=== PATIENT | female | born 2000 | race Caucasian/White ===

== ENCOUNTER 2025-06-30 12:08 | Emergency (ER) | payer OTHER, SELFPAY ==
[2025-06-30 12:10] VITALS: BP 159/98
[2025-06-30] MEDS: MOTRIN 400 MG PO (14:54)
[2025-06-30 14:56] VITALS: BMI 25.8
[2025-06-30 15:00] VITALS: BP 124/70
[2025-06-30 16:00] VITALS: BP 120/69
[2025-06-30 17:01] VITALS: BP 122/74
[2025-06-30 18:00] VITALS: BP 123/81
--- NOTE | 2025-06-30 18:41 | ED.GENMED ---
History of Present Illness
General
Chief Complaint: Musculo-Skeletal Complaint
Source: patient and family
Time Seen by Provider: 06/30/25 14:27
History of Present Illness
History of Present Illness:
Note:
CHIEF COMPLAINT(S)
Inability to move both legs due to episodic sharp pain.
HISTORY OF PRESENT ILLNESS
The patient is a 25-year-old female who presents with episodes of inability to move both lower extremities associated with sharp pain. These episodes began approximately one month ago. The initial episode involved sharp pain beginning in one leg,
followed by similar pain in the other leg with associated weakness, preventing mobility, including inability to walk to the bathroom. The episodes resolved after two days and did not recur until today. During today�s episode, the patient experienced
two separate episodes of sharp pain and weakness in both legs, first occurring around 10:00 AM, and again around 11:00 AM. The pain and weakness are described as coming and going completely, with the episodes today being described as sudden in
onset.
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
month old. 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
The patient denies recent trauma, heavy lifting, or other activities preceding the onset of the symptoms. No urinary or bowel incontinence, numbness, or abnormal sensations in the perineal area have been reported. No new back pain or changes in
pre-existing conditions related to the congenital abnormalities were noted.
EXTERNAL RECORDS REVIEWED
The patient previously visited her primary care physician, who ordered blood work and X-ray approximately two weeks ago at [facility]. However, these investigations were stated as not providing conclusive information about the current
neurological symptoms.
CHRONIC MEDICAL CONDITIONS SIGNIFICANTLY AFFECTING CARE
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
PHYSICAL EXAM
General: Alert, no acute distress.
Skin: No abnormalities reported.
Head: Normocephalic, atraumatic.
Neck: Supple, trachea midline.
Eye, Ear, Nose, Mouth and Throat: Oral mucosa moist. Pacification of the right cornea noted.
Cardiovascular: Heart regular without murmur. Normal bilateral pulses in the feet, well perfused, bilaterally warm.
Respiratory: Respirations are non-labored, no respiratory distress noted.
Gastrointestinal: Abdomen nondistended.
Back: Non-tender to midline palpation, no obvious deformities.
Musculoskeletal: The ability to lift legs against gravity bilaterally, normal deep tendon reflexes bilaterally.
Neurological: Alert and oriented to person, place, time, and situation, able to hold legs against gravity, showing no focal neurological deficit observed.
Psychiatric: Cooperative, appropriate mood and affect.
PROBLEM LIST
Acute Issues:
- Episodic sharp pain and weakness in both lower extremities.
- Congenital spinal opening evaluation.
Chronic Issues:
- Pectus excavatum.
- Corneal clouding and history of corneal transplant.
- Artery hyperplasia.
PLAN
- Consider obtaining advanced imaging such as MRI to assess potential nerve impingement and further investigate congenital spinal involvement.
- Review previous tests and x-rays for any overlooked abnormalities.
- The patient was given 400 mg of ibuprofen for pain relief with consent.
- Re-evaluation of the need for immediate imaging versus scheduled advanced imaging.
DIFFERENTIAL DIAGNOSIS
The Differential Diagnosis includes, in no particular order and is not limited to:
- Sciatic nerve impingement.
- Multiple sclerosis.
- Transient ischemic attack.
- Spinal cord compression.
- Peripheral neuropathy.
- Congenital spinal anomaly-related nerve involvement.
- Acute disseminated encephalomyelitis.
- Disk herniation.
- Arteriovenous malformation in the spine.
- Vascular ischemia affecting spinal or peripheral areas.
CARE-UPDATE
06/30/25 - 14:48
Discussion with the radiologist confirms the decision to proceed with a CT scan of the patients back for a more detailed evaluation of the anatomy. Initiation of ibuprofen for management of symptoms has been planned.
CARE-UPDATE
06/30/25 - 18:40
The patient reports feeling much better with no further symptoms, suggesting the symptoms may be briefly episodic. Transverse myelitis is less suspected. The patient successfully urinated independently, with no signs of incontinence. A CT was deemed
sufficient for current evaluation. I recommend an outpatient MRI for further assessment, and the patients mother agrees to an outpatient follow-up. The patient is considered safe for discharge.
Disposition:
SUMMARY OF ENCOUNTER
The patient, a 25-year-old female, presented with intermittent episodes of sharp pain and weakness in both lower extremities, preventing her from moving her legs. The episodes began around a month ago and have been episodic in nature. In the
emergency department, her neurological examination did not show any focal deficits, and normal deep tendon reflexes were noted. Given the concern for possible nerve involvement due to congenital abnormalities near the spine, advanced imaging was
considered. Transverse myelitis was considered but deemed less likely. The patients symptoms resolved completely during the visit.
DISPOSITION
Discharge. The patient is considered safe for outpatient management with follow-up.
ASSESSMENT
Episodic sharp pain and weakness in both lower extremities, potential nerve involvement due to congenital spinal anomaly.
PLAN
Recommend outpatient follow-up with primary care physician. Consider outpatient MRI for further assessment of congenital spinal abnormalities.
PATIENT EDUCATION AND COUNSELING
The patient was advised that while her current symptoms have resolved, follow-up with her primary care provider is essential to monitor and investigate the cause of the episodes.
FOLLOW-UP INSTRUCTIONS
Follow up with primary care physician. Outpatient MRI may be considered for further evaluation.
MEDICATION RECONCILIATION
Ibuprofen 400 mg was administered for pain relief.
MEDICAL DECISION MAKING
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 Differential diagnosis includes sciatic nerve impingement,
multiple sclerosis, transient ischemic attack, spinal cord compression, peripheral neuropathy, congenital spinal anomaly-related nerve involvement, acute disseminated encephalomyelitis, disk herniation, arteriovenous malformation in the spine, and
vascular ischemia affecting spinal or peripheral areas.
- Data:
Category 1
Non-emergency department records reviewed. Previous records including blood work and X-ray from [facility] were noted as inconclusive.
Category 2
No specific independent interpretation of imaging or labs during this visit.
Category 3
Discussion with radiologist led to a decision to obtain a CT scan for further evaluation. Patients mother was involved in the discussion regarding follow-up care.
- Risk: Consideration of Admission/Observation: Escalation of care including admission/observation was considered given the complexity and risk of the patients presenting complaint. However, ultimately I feel the patient is safe for outpatient
management with close follow-up. Reasoning: Workup was reassuring, didnt reveal any acute life/organ-threatening processes, patients symptoms well controlled upon reevaluation, reexamination was reassuring, vitals were stable, patient agreeable with
discharge, reliable for follow-up.
DIAGNOSIS
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
Past History
Past History
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
ED Past Surgical History: None
Social History
Tobacco: Non-smoker
Phy Exam
Physical Exam
Physical Exam:
.
Course
Orders/Labs/Results
Orders:
Orders
06/30/25 14:45
CT Lumbar Spine W/o Iv Contras Urgent
Comment:
Reason For Exam: b/l lower ext weakness, pain, h/o genetic d/o
06/30/25 14:46
Ibuprofen [Motrin] 400 mg PO NOW STA
Vital Signs
Initial and Last Documented VS:
Initial Vital Signs
Temp Pulse Resp BP Pulse Ox
98.2 F 86 15 159/98 100
06/30/25 12:10 06/30/25 12:10 06/30/25 12:10 06/30/25 12:10 06/30/25 12:10
Last Documented Vital Signs
Temp Pulse Resp BP Pulse Ox
98.2 F 86 15 123/81 98
06/30/25 12:10 06/30/25 12:10 06/30/25 12:10 06/30/25 18:00 06/30/25 18:43
*Pulse Oximetry
SaO2: 98
Oxygen Mode of Delivery: Room air
Patient hypoxic: no
*Critical Care Note
Total Time (30-74mins, 75-104mins- exclusive of procedures): Not Applicable
ED Attending Note
-
Portions of this chart may have been created with voice recognition software.� Occasional wrong word or��sound alike� substitutions may have occurred due to the inherent limitations of voice recognition software.
Discharge Plan
Departure
Patient Disposition: Home (Routine Discharge)
Date of Disposition: 06/30/25
Time of Disposition: 18:43
Patient with high blood pressure during this ER visit?: No
Discharge Problem:
Radiculopathy
Prescriptions:
No Action
ibuprofen 600 MG tablet
600 mg PO Q6 Qty: 20 0RF
atorvastatin 10 mg Tablet
10 mg PO HS
rizatriptan 10 mg Tablet
10 mg PO DAILY
azelastine 137 mcg (0.1 %) [place],Non-Aerosol
2 spray INTRANASAL BID
Referrals:
Stephanie Herr CRNP [Family Provider]
Activity Restrictions/Additional Instructions:
Leg pain, possible radiculopathy
If symptoms persist, an MRI of your low back may be necessary. Please see your doctor in the next 3 to 5 days for follow-up and reevaluation. Please rest and return immediately for worsening symptoms, fevers, bowel incontinence, bladder
incontinence, numbness or tingling in the genitourinary anatomy or perirectal region, fevers, or any other concerns.
Interventions
Interventions:
*Risk Screen - Suicide Last Done: 06/30/25 12:10
*General Assessment Last Done: 06/30/25 12:10
*Neglect/Abuse Screening Last Done: 06/30/25 12:10
*ED- Fall Risk Assessment Last Done: 06/30/25 15:00
*ED COVID-19 Vaccine History Last Done: 06/30/25 12:10
*ED Influenza Vaccine History Last Done: 06/30/25 12:10
*Nursing Disposition Last Done: 06/30/25 18:55
ED-Musculoskeletal Assessment Last Done: 06/30/25 15:55
Discharge Date and Time
Discharge Date/Time: 06/30/25 19:12
Print Language: MONTSERRATIAN
== END 2025-06-30 19:12 | disposition home or self-care (01) ==
LOC: EMR 12:08
PROVIDERS: EMERGENCY PHYSICIAN Emergency Medicine; FAMILY PHYSICIAN Nurse Practitioner Primary Care
DX: M54.10 Radiculopathy, site unspecified (principal); H54.61 Unqualified visual loss, right eye, normal vision left eye; I77.3 Arterial fibromuscular dysplasia; Q67.6 Pectus excavatum; Z94.7 Corneal transplant status
CPT/HCPCS: 99284; 72131